=== PATIENT | female | born 1995 | race Caucasian/White ===

== ENCOUNTER 2016-11-09 22:29 | Emergency (ER) | payer SELFPAY ==
[~2016-11-09] VITALS: Ht 157.5 cm; Wt 47.7 kg
[2016-11-09 22:37] VITALS: Ht 157.5 cm; Wt 47.7 kg
[2016-11-10 00:13] LABS: BASOPHIL # 0.1 10^3/ul (0.0-0.1); BASOPHILS % 0.9 % (0.0-2.0); EOSINOPHILS # 0.2 10^3/ul (0.0-0.5); EOSINOPHILS % 1.9 % (0.0-7.0); HEMATOCRIT 39.2 % (37.0-47.0); HEMOGLOBIN 12.7 g/dl (12.0-16.0); LYMPHOCYTES # 2.7 10^3/ul (0.8-2.9); LYMPHOCYTES % 31.6 % (15.0-51.0); MEAN CORPUSCULAR HEMOGLOBIN 26.7 pg (29.0-33.0); MEAN CORPUSCULAR HGB CONC 32.4 g/dl (32.0-37.0); MEAN CORPUSCULAR VOLUME 82.5 fl (82.0-101.0); MEAN PLATELET VOLUME 9.4 fl (7.4-10.4); MONOCYTE # 0.6 10^3/ul (0.3-0.9); MONOCYTES % 6.6 % (0.0-11.0); NEUTROPHILS % 58.8 % (39.0-77.0); PLATELET COUNT 278 10^3/UL (140-415); RED BLOOD COUNT 4.75 10^6/ul (4.20-5.40); RED CELL DISTRIBUTION WIDTH 12.6 % (11.5-14.5); WHITE BLOOD COUNT 8.5 10^3/ul (4.8-10.8)
--- NOTE | 2016-11-10 00:17 | ERD ---
ER Documentation Chief Complaint Date/Time DATE: 11/10/16 TIME: 00:14 Chief Complaint VAG BLEED TODAY SPOTTING, 4 WEEKS LMP 09/21 HPI 21 year old female with LMP 09/21 presenting to the emrgency department complaining of vaginal spotting and mild pelvic pain that started today. Patient describes the pelvic pain as mild and cramping and that comes and goes. Patient denies any fevers, flank pain, vomiting nausea. She denies any dysuria. Patient states that she took a test 2 days ago and was positive ROS All systems reviewed and are negative except as per history of present illness. Medications Home Meds Reported Medications Aripiprazole* (Abilify*) Unknown Strength Tab, PO DAILY, #30 TAB 11/13/16 Allergies Allergies: Coded Allergies: No Known Allergy (Unverified , 11/09/16) PMhx/Soc Medical and Surgical Hx: pt denies Medical Hx, pt denies Surgical Hx Hx Alcohol Use: No Hx Substance Use: No Hx Tobacco Use: No Smoking Status: Never smoker Physical Exam Vitals Physical Exam GENERAL: well-developed/well-nourished, in no apparent distress, non-toxic appearing HENT: NC/AT, moist mucous membranes EYES: Conjunctiva normal NECK: Supple, no lymphadenopathy PULM: CTA bilaterally, no rales, rhonchi, or wheezing heard CV: Normal S1S2, RRR, good capillary refill GI: Soft, non-distended, nontender to palpation Normal bowel sounds, no masses or organomegaly felt on exam No gross peritonitis, no bruits Negative Rovsing, negative Melara, negative McBurney's point, Negative CVAT BACK: No masses EXT: No clubbing, cyanosis, or edema NEURO: Alert and Orientated SKIN: Intact, normal turgor PSYCH: Normal mood and mentation Results 24 hrs Laboratory Tests Test 11/09/16 23:52 11/09/16 23:55 White Blood Count 8.510^3/ul Red Blood Count 4.7510^6/ul Hemoglobin 12.7g/dl Hematocrit 39.2% Mean Corpuscular Volume 82.5fl Mean Corpuscular Hemoglobin 26.7pg Mean Corpuscular Hemoglobin Concent 32.4g/dl Red Cell Distribution Width 12.6% Platelet Count 30970^3/UL Mean Platelet Volume 9.4fl Neutrophils % 58.8% Lymphocytes % 31.6% Monocytes % 6.6% Eosinophils % 1.9% Basophils % 0.9% Nucleated Red Blood Cells % 0.0/100WBC Neutrophils # 5.010^3/ul Lymphocytes # 2.710^3/ul Monocytes # 0.610^3/ul Eosinophils # 0.210^3/ul Basophils # 0.110^3/ul Nucleated Red Blood Cells # 0.010^3/ul Beta HCG, Quantitative 732.6mIU/ml Urine Color STRAW Urine Clarity CLEAR Urine pH 7.0 Urine Specific [place] 1.010 Urine Ketones NEGATIVEmg/dL Urine Nitrite NEGATIVEmg/dL Urine Bilirubin NEGATIVEmg/dL Urine Urobilinogen NEGATIVEmg/dL Urine Leukocyte Esterase NEGATIVELeu/ul Urine Microscopic RBC 0/HPF Urine Microscopic WBC 0/HPF Urine Hemoglobin 2+mg/dL Urine Glucose NEGATIVEmg/dL Urine Total Protein NEGATIVEmg/dl Procedures/MDM 21-year-old female who states she is 24 weeks last menstrual period being September 21 presents to the emergency department complaining of vaginal spotting and mild pelvic pain that started today, likely threatened . Patient will need to return to the emergency department in 2 days for repeat ultrasound and beta-hCG. Today beta-hcg 752. There was no evidence of a urinary tract infection, pyelonephritis, complete . Discussed return to the emergency department for any worsening sinus symptoms. Patient understands and agrees with this plan OB ultrasound: 1. No intrauterine gestational sac. Previously noted intrauterine gestational sac seen on 11/09/2016 is no longer present. Findings are consistent with recent spontaneous . 2. Small to moderate free fluid in the cul-de-sac, nonspecific. Departure Diagnosis: Primary Impression: Vaginal bleeding in patient at less than 20 weeks gestation Condition: Fair JOYCELYN OCAMPO PA-C Nov 10, 2016 00:17 JOYCELYN OCAMPO PA-C Nov 10, 2016 00:17
[2016-11-10 00:26] LABS: ADD UMIC YES; UR ASCORBIC ACID NEGATIVE (NEGATIVE); UR BILIRUBIN (Dip) NEGATIVE (NEGATIVE); UR BLOOD (Dip) 2+ mg/dL (NEGATIVE); UR CLARITY CLEAR (CLEAR); UR COLOR STRAW (YELLOW); UR GLUCOSE (Dip) NEGATIVE (NEGATIVE); UR KETONES (Dip) NEGATIVE (NEGATIVE); UR LEUKOCYTE ESTERASE (Dip) NEGATIVE Leu/ul (NEGATIVE); UR NITRITE (Dip) NEGATIVE (NEGATIVE); UR RBC 0 /HPF (0-5); UR TOTAL PROTEIN (Dip) NEGATIVE (NEGATIVE); UR UROBILINOGEN (Dip) NEGATIVE (NEGATIVE)
[2016-11-10 02:16] VITALS: BP 153/63; PULSE 80; RESP 20; TEMP 98.6
== END 2016-11-10 02:21 | disposition home or self-care (01) ==
LOC: FTE 22:29
DX: O20.9 Hemorrhage in early pregnancy, unspecified (principal); R10.2 Pelvic and perineal pain; Z3A.01 Less than 8 weeks gestation of pregnancy
CPT/HCPCS: 36415; 76801; 76817; 81001; 84702; 85025; 86900; 86901

== ENCOUNTER 2016-11-13 17:29 | Emergency (ER) | payer BC ==
[~2016-11-13] VITALS: Ht 157.5 cm; Wt 53.0 kg
[2016-11-13 17:36] VITALS: Ht 157.5 cm; Wt 53.0 kg
[2016-11-13] MEDS ORDERED: ARIP5TAB7 PO (19:31)
--- NOTE | 2016-11-13 19:31 | ERD ---
ER Documentation Chief Complaint Date/Time DATE: 11/13/16 TIME: 19:30 Chief Complaint Patient here for a recheck HPI 21-year-old female presents here in emergency department for reevaluation, patient was seen here 3 days ago, was diagnosed to be , patient was having vaginal spotting, today, she was sent here for further reevaluation, the son adnexal cyst noted in the ultrasound, there was also an intrauterine gestation noted and ultrasound, patient's or the doctor wants to make sure that the patient does not have any ectopic . Patient does not have any pain at this time, patient continues to have vaginal spotting. Patient denies any pain. Patient denies any cramping. Patient has any fever or chills. Patient is planned to have elective through [facility] on 11/22/2016. Patient is 1 para 0 0. ROS All systems reviewed and are negative except as per history of present illness. Medications Home Meds Reported Medications Aripiprazole* (Abilify*) Unknown Strength Tab, PO DAILY, #30 TAB 11/13/16 Allergies Allergies: Coded Allergies: No Known Allergy (Unverified , 11/09/16) PMhx/Soc Medical and Surgical Hx: pt denies Medical Hx, pt denies Surgical Hx Hx Alcohol Use: No Hx Substance Use: No Hx Tobacco Use: No FmHx Family History: No coronary disease, No diabetes, No other Physical Exam Vitals Vital Signs Date Time Temp Pulse Resp B/P Pulse Ox O2 Delivery O2 Flow Rate FiO2 11/13/16 17:36 98.3 70 20 125/74 97 Physical Exam GENERAL: The patient is well developed and appropriate for usual state of health, in no apparent distress. CHEST: Clear to auscultation bilaterally. There are no rales, wheezes or rhonchi. HEART: Regular rate and rhythm. No murmurs, clicks, rubs or gallops. No S3 or S4. ABDOMEN: Soft, nontender and nondistended. Good bowel sounds. No rebound or guarding. No gross peritonitis. No gross organomegaly or masses. No Melara sign or McBurney point tenderness. BACK: No midline or flank tenderness. EXTREMITIES: Equal pulses bilaterally. There is no peripheral clubbing, cyanosis or edema. No focal swelling or erythema. Full range of motion. Grossly neurovascularly intact. NEURO: Alert and oriented. Cranial nerves 2-12 intact. Motor strength in all 4 extremities with 5/5 strength. Sensation grossly intact. Normal speech and gait. SKIN: There is no apparent rash or petechia. The skin is warm and dry. HEMATOLOGIC AND LYMPHATIC: There is no evidence of excessive bruising or lymphedema. No gross cervical, axillary, or inguinal lymphadenopathy. Result Diagram: 11/13/16 2030 Results 24 hrs Laboratory Tests Test 11/13/16 20:30 White Blood Count 5.610^3/ul Red Blood Count 4.5710^6/ul Hemoglobin 12.1g/dl Hematocrit 38.1% Mean Corpuscular Volume 83.4fl Mean Corpuscular Hemoglobin 26.5pg Mean Corpuscular Hemoglobin Concent 31.8g/dl Red Cell Distribution Width 12.6% Platelet Count 96213^3/UL Mean Platelet Volume 9.9fl Neutrophils % 56.9% Lymphocytes % 32.4% Monocytes % 8.6% Eosinophils % 1.4% Basophils % 0.5% Nucleated Red Blood Cells % 0.0/100WBC Neutrophils # 3.210^3/ul Lymphocytes # 1.810^3/ul Monocytes # 0.510^3/ul Eosinophils # 0.110^3/ul Basophils # 0.010^3/ul Nucleated Red Blood Cells # 0.010^3/ul Beta HCG, Quantitative 86.8mIU/ml PROCEDURE: OB Ultrasound. CLINICAL INDICATION: Positive test. Vaginal bleeding. TECHNIQUE: Ultrasound of the pelvis was performed with transabdominal and transvaginal sonography in the axial and sagittal planes. COMPARISON: Ultrasound dated 11/09/2016 which demonstrated an intrauterine gestational sac with no pole or yolk sac. FINDINGS: There is no intrauterine gestational sac. The uterus measures 8.2 x 4.7 x 5.7 cm. Endometrial thickness is 11.4 mm. There is no uterine enlargement or mass. The right ovary appears normal measuring 3.3 x 1.3 x 1.3 cm. The left ovary appears normal measuring 2.8 x 1.1 x 1.4 cm. Color Doppler and pulsed Doppler sonography demonstrate normal flow to the ovaries. There is no pelvic mass. There is small to moderate free fluid in the cul-de- sac. IMPRESSION: 1. No intrauterine gestational sac. Previously noted intrauterine gestational sac seen on 11/09/2016 is no longer present. Findings are consistent with recent spontaneous . 2. Small to moderate free fluid in the cul-de-sac, nonspecific. RPTAT: QQ .Donovan Anaya MD, Date Time Electronically viewed and signed by .Donovan Anaya MD, MD on 11/13/2016 21:09 .R/ Procedures/MDM Medical Decision Making: Patients vaginal bleeding is most likely consistent of spontaneous . Patient does not show any evidence of hypovolemic shock. Patients hemoglobin and hematocrit is stable. There is low suspicion for ectopic . JULIA results show no intrauterine , the previously seen intrauterine gestational sac is not seen anymore BetaHCG Quantitative is very low and markedly decreased from last time The patient is Rh +, does not need RhoGAM this time. There is no signs of symptoms of dehydration. There is low suspicion for sepsis. Patient appears well and is hemodynamically stable. Disposition: Home. Condition: Stable Instructions: Patient is advised to do bed rest, avoid heavy lifting, and avoid having sex until cleared by OB doctor. Patient is advised to follow up with OB doctor or here at the ER in 48 hours for reevaluation of symptoms, repeat beta HCG quantitative and ultrasound. Patient is advised that is symptoms are worst, severe bleeding, dizziness, severe abdominal pain, fever, worst signs and symptoms to return to the emergency department immediately. Departure Diagnosis: Primary Impression: Spontaneous Condition: Stable Patient Instructions: Miscarriage, Spontaneous (Completed) Additional Instructions: Patient is advised to do bed rest, avoid heavy lifting, and avoid having sex until cleared by OB doctor. Patient is advised to follow up with OB doctor or here at the ER in 48 hours for reevaluation of symptoms, repeat beta HCG quantitative and ultrasound. Patient is advised that is symptoms are worst, severe bleeding, dizziness, severe abdominal pain, fever, worst signs and symptoms to return to the emergency department immediately. EDDIE CANTU NP Nov 13, 2016 19:31
[2016-11-13 20:34] LABS: BASOPHILS % 0.5 % (0.0-2.0); EOSINOPHILS # 0.1 10^3/ul (0.0-0.5); EOSINOPHILS % 1.4 % (0.0-7.0); HEMATOCRIT 38.1 % (37.0-47.0); HEMOGLOBIN 12.1 g/dl (12.0-16.0); LYMPHOCYTES # 1.8 10^3/ul (0.8-2.9); LYMPHOCYTES % 32.4 % (15.0-51.0); MEAN CORPUSCULAR HEMOGLOBIN 26.5 pg (29.0-33.0); MEAN CORPUSCULAR HGB CONC 31.8 g/dl (32.0-37.0); MEAN CORPUSCULAR VOLUME 83.4 fl (82.0-101.0); MEAN PLATELET VOLUME 9.9 fl (7.4-10.4); MONOCYTE # 0.5 10^3/ul (0.3-0.9); MONOCYTES % 8.6 % (0.0-11.0); NEUTROPHIL # 3.2 10^3/ul (1.6-7.5); NEUTROPHILS % 56.9 % (39.0-77.0); PLATELET COUNT 228 10^3/UL (140-415); RED BLOOD COUNT 4.57 10^6/ul (4.20-5.40); RED CELL DISTRIBUTION WIDTH 12.6 % (11.5-14.5); WHITE BLOOD COUNT 5.6 10^3/ul (4.8-10.8)
--- NOTE | 2016-11-13 21:09 | RADRPT ---
PROCEDURE: OB Ultrasound. CLINICAL INDICATION: Positive test. Vaginal bleeding. TECHNIQUE: Ultrasound of the pelvis was performed with transabdominal and transvaginal sonography in the axial and sagittal planes. COMPARISON: Ultrasound dated 11/09/2016 which demonstrated an intrauterine gestational sac with no pole or yolk sac. FINDINGS: There is no intrauterine gestational sac. The uterus measures 8.2 x 4.7 x 5.7 cm. Endometrial thic kness is 11.4 mm. There is no uterine enlargement or mass. The right ovary appears normal measuring 3.3 x 1.3 x 1.3 cm. The left ovary appears normal measuring 2.8 x 1.1 x 1.4 cm. Color Doppler and pulsed Doppler sonography demonstrate normal flow to the ovaries. There is no pelvic mass. There is small to moderate free fluid in the cul-de-sac. IMPRESSION: 1. No intrauterine gestational sac. Previously noted intrauterine gestational sac seen on 11/10/19 17 is no longer present. Findings are consistent with recent spontaneous . 2. Small to moderate free fluid in the cul-de-sac, nonspecific. RPTAT: QQ .Donovan Anaya MD, MD Date Time Electronically viewed and signed by .Donovan Anaya MD, on 11/13/2016 21:09 .R/
== END 2016-11-13 21:48 | disposition home or self-care (01) ==
LOC: FTE 17:29
DX: O03.9 Complete or unspecified spontaneous abortion without complication (principal)
CPT/HCPCS: 36415; 76801; 76817; 84702; 85025